=== PATIENT | female | born 1995 | race Two or more races ===

== ENCOUNTER 2021-01-28 16:48 | Inpatient (IN) | payer OTHER ==
[~2021-01-28] VITALS: Ht 149.9 cm; Wt 65.3 kg
[2021-01-28] MEDS ORDERED: PRENATAL TABLE1 EAC1 PO (18:37)
== END 2021-01-30 09:27 | disposition home or self-care (01) | DRG 833 ==
LOC: LDR 16:48 → OB/GYN 01-29 19:02
PROVIDERS: ADMIT Obstetrics & Gynecology; ATTEND Obstetrics & Gynecology
PROC: 4A1HXFZ Monitoring of Products of Conception, Cardiac Rhythm, External Approach (ICD-10-PCS; principal; 2021-01-28)
DX: O47.03 False labor before 37 completed weeks of gestation, third trimester (principal); Z3A.32 32 weeks gestation of pregnancy; Z20.822 Contact with and (suspected) exposure to COVID-19

== ENCOUNTER → 2021-02-11 | Outpatient (CLI) | payer OTHER ==
[~2021-02-11] MED LIST: PRENATAL TABLE1 EAC1 PO
== END | disposition home or self-care (01) ==
LOC: PRENATAL 13:00
PROVIDERS: ATTEND Obstetrics & Gynecology Maternal & Fetal Medicine
DX: O35.0XX1 Maternal care for (suspected) central nervous system malformation in fetus, fetus 1 (principal); O35.3XX1 Maternal care for (suspected) damage to fetus from viral disease in mother, fetus 1; O98.513 Other viral diseases complicating pregnancy, third trimester; O43.93 Unspecified placental disorder, third trimester; O41.03X1 Oligohydramnios, third trimester, fetus 1; Z36.89 Encounter for other specified antenatal screening; Z3A.34 34 weeks gestation of pregnancy

== ENCOUNTER 2021-03-04 09:47 | Inpatient (IN) | payer OTHER ==
[~2021-03-04] VITALS: Ht 149.9 cm; Wt 69.9 kg
[2021-03-05] MEDS ORDERED: VALACYCLOVIR500 MG (13:15)
[2021-03-07] MEDS ORDERED: DOCUSATE SODIU100 MG PO (14:04)
[2021-03-07] MEDS ORDERED: IBUPROFEN600 MG PO (14:04)
== END 2021-03-07 14:02 | disposition home or self-care (01) | DRG 788 ==
LOC: LDR 09:47 → O/R 03-05 08:41 → OB/GYN 03-05 14:01
PROVIDERS: Obstetrics & Gynecology; ADMIT Obstetrics & Gynecology; ATTEND Obstetrics & Gynecology
PROC: 4A1HXFZ Monitoring of Products of Conception, Cardiac Rhythm, External Approach (ICD-10-PCS; 2021-03-04)
PROC: 10D00Z1 Extraction of Products of Conception, Low, Open Approach (ICD-10-PCS; principal; 2021-03-04 21:00)
DX: O64.1XX0 Obstructed labor due to breech presentation, not applicable or unspecified (principal); Z3A.37 37 weeks gestation of pregnancy; Z37.0 Single live birth; Z20.822 Contact with and (suspected) exposure to COVID-19

== ENCOUNTER 2021-03-31 08:00 | Outpatient (CLI) | payer OTHER ==
[~2021-03-31 08:00] MED LIST changes: +DOCUSATE SODIU100 MG PO; +IBUPROFEN600 MG PO; +VALACYCLOVIR500 MG
== END 2021-03-31 08:30 | disposition home or self-care (01) ==
LOC: PPH VACUNA 08:00
DX: Z23 Encounter for immunization (principal)

== ENCOUNTER 2021-04-19 08:00 | Outpatient (CLI) | payer OTHER | END 2021-04-19 08:30 | disposition home or self-care (01) | LOC: PPH VACUNA 08:00 | DX: Z23 Encounter for immunization (principal) ==